=== PATIENT | female | born 1990 | race American Indian/Alaskan Native ===

== ENCOUNTER 2017-11-20 09:22 | Emergency (ER) | payer MEDICAID, OTHER ==
[2017-11-20] MEDS ORDERED: TESSALON PERLES PO ONE (11:21)
[2017-11-20] MEDS ORDERED: TYLENOL PO ONE (11:21)
[2017-11-20] MEDS ORDERED: MUCINEX ER PO ONE (11:21)
[2017-11-20] MEDS ORDERED: NACL 0.9% 1000 ML 1,000 ML IV ONE (11:22)
--- NOTE | 2017-11-20 12:19 | Emergency Department Report ---
Chief Complaint: Upper Respiratory Infection Stated Complaint: FLU LIKE SYMPTOMS Time Seen by Provider: 11/20/17 11:21 - HPI History of Present Illness: The patient is a 27 yo f whom presents for evaluation of cough and chest pain. The patient reports 1 day of a nonproductive cough, and aching in quality mild generalized chest pain, elicited with coughing, resolved at rest. She also reports generalized myalgias. The patient denies fever, headache, neck pain or stiffness, paresthesias, focal motor weakness, hemoptysis, dyspnea, syncope, abdominal pain, unilateral leg swelling, oral CP use, confusion or altered mental status, recent URI or diarrhea, history of DVT or PE, history of cancer or chemotherapy use. - Exam Vital Signs: Vital Signs 11/20/17 11/20/17 09:29 11:24 Temperature 99 F Pulse Rate 115 H Respiratory 17 18 Rate Blood Pressure 115/69 O2 Sat by Pulse 98 Oximetry MSE screening note: Focused history and physical exam performed. Due to findings the following was ordered: ED Disposition for MSE Condition: Undetermined Referrals: PRIMARY CARE, [Primary Care Provider] - 3-5 Days
--- NOTE | 2017-11-20 13:18 | Emergency Department Report ---
Minor Respiratory - HPI Chief Complaint: Upper Respiratory Infection Stated Complaint: FLU LIKE SYMPTOMS Time Seen by Provider: 11/20/17 11:21 Duration: Today Pain Location: Chest (discomfort) Severity: moderate Minor Respiratory: Yes Rhinorrhea, Yes Able to Tolerate Fluids, Yes Cough, Yes Chest Pain (tightness), Yes Fever, No Sore Throat, No Ear Pain, No Sick Contacts , No Hemoptysis, No Shortness of Breath Other History: This is a 27-year-old -[place] female presents with body aches, fever, and cough that started on yesterday. The patient reports 1 day of a nonproductive cough, and aching in quality with mild generalized chest pain , elicited with coughing, resolved at rest. She also reports generalized myalgias. She took muscle relaxers yesterday because she thought it was muscle spasms in legs. 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 ED Review of Systems ROS: Stated complaint: FLU LIKE SYMPTOMS Other details as noted in HPI Constitutional: chills, fever ENT: congestion. denies: ear pain, throat pain Respiratory: cough. denies: shortness of breath, wheezing Cardiovascular: chest pain (tightness with cough). denies: palpitations, edema , syncope Gastrointestinal: denies: abdominal pain, nausea, vomiting, diarrhea Musculoskeletal: myalgia. denies: back pain, joint swelling, arthralgia Neurological: denies: headache, weakness, numbness, paresthesias Psychiatric: denies: anxiety, depression ED Past Medical Hx - Past Medical History Previous Medical History?: No - Surgical History Past Surgical History?: No - Social History Smoking Status: Never Smoker Substance Use Type: None - Medications Home Medications: Home Medications Medication Instructions Recorded Confirmed Last Taken Type Benzonatate 200 mg PO TID PRN #30 capsule 11/20/17 Unknown Rx Fluticasone [Flonase] 1 spray NS QDAY #1 bottle 11/20/17 Unknown Rx Guaifenesin/Pseudoephedrne HCl 1 each PO BID #14 tab.er.12h 11/20/17 Unknown Rx [Guaifenesin-Pse ER 600-60 mg] Minor Respiratory Exam - Exam General: Vital signs noted. No distress. Alert and acting appropriately. HEENT: Yes Moist Mucous Membranes, Yes Rhinorrhea (turbinates red and enlarged with clear discharge), No Pharyngeal Erythema, No Pharyngeal Exudates, No Conjuctival Injection, No Frontal Tenderness, No Maxillary Tenderness Ear: Neither TM Bulge, Neither TM Erythema, Neither EAC Pain, Neither EAC Discharge Neck: Yes Supple, No Adenopathy Lungs: Yes Good Air Exchange, Yes Cough, No Wheezes, No Ronchi, No Stridor, No Labored Respirations, No Retractions, No Use of Accessory Muscles, No Other Abnormal Lung Sounds Abdomen: Yes Normal Bowel Sounds, No Tenderness, No Peritoneal Signs Skin: No Rash, No Edema Neurologic: Alert and oriented, no deficits. Musculoskeletal: Unremarkable. ED Course Vital Signs 11/20/17 11/20/17 11/20/17 09:29 11:17 11:24 Temperature 99 F Pulse Rate 115 H 86 Respiratory 17 18 Rate Blood Pressure 115/69 133/90 O2 Sat by Pulse 98 99 Oximetry 11/20/17 12:24 Temperature Pulse Rate Respiratory 18 Rate Blood Pressure O2 Sat by Pulse Oximetry ED Medical Decision Making - Radiology Data Radiology results: report reviewed CXR: no acute cardiopulmonary findings. - Medical Decision Making 27 y.o. female that presents with URI symptoms. Patient examined by me and Dr. Todd and stable. No distress noted. Vitals stable. Obtained CXR and read by radiologist. No acute cardiopulmonary findings. Given tylenol 650 mg po once , benzonatate 100 mg po once, guaifenesin 600 mg po once, and NS 1L bolus once in ER. Discharged home. Encouraged to do supportive care for URI. Start guaifenesin-pseudofed, benzonatate, and flonase for URI. Follow up with PCP in 2 -3 days. Critical care attestation.: If time is entered above; I have spent that time in minutes in the direct care of this critically ill patient, excluding procedure time. ED Disposition Clinical Impression: Upper respiratory infection Qualifiers: URI type: acute nasopharyngitis (common cold) Qualified Code(s): J00 - Acute nasopharyngitis [common cold] Disposition: - TO HOME OR SELFCARE Is pt being admited?: No Does the pt Need Aspirin: No Condition: Stable Instructions: Upper Respiratory Infection (ED), Cold Symptoms (ED) Additional Instructions: Increase fluid intake and rest. Wash hands frequently. Continue taking tylenol or ibuprofen to control fever. F/U with Primary Care Provider in 2-3 days. Return to ER if fever, SOB, or difficulty breathing after 48 hours of supportive care. Prescriptions: Benzonatate 200 mg PO TID PRN #30 capsule PRN Reason: Cough Fluticasone [Flonase] 1 spray NS QDAY #1 bottle Guaifenesin/Pseudoephedrne HCl [Guaifenesin-Pse ER 600-60 mg] 1 each PO BID #14 tab.er.12h Referrals: [facility] [Outside] - 3-5 Days [facility] [Outside] - 3-5 Days [facility] [Outside] - 3-5 Days Forms: Work/School Release Form(ED) Time of Disposition: 13:26 Print Language: ITALIAN
[2017-11-20 13:40] VITALS: BP 115/80
== END 2017-11-20 13:40 | disposition home or self-care (01) ==
LOC: ED 09:22
DX: J00 Acute nasopharyngitis [common cold] (principal)
CPT/HCPCS: 71046; 99283